=== PATIENT | female | born 1965 | race Caucasian/White ===

== ENCOUNTER 2018-05-20 07:03 | Day surgery (SDC) | payer OTHER ==
[~2018-05-20] VITALS: Ht 170.2 cm; Wt 61.2 kg
[2018-05-20] MEDS ORDERED: KETOROLAC 30 MG/ML VIAL ONE (08:50)
[2018-05-20] MEDS ORDERED: LIDOCAINE 2% 100 MG/5 ML UJET TP ONE (08:50)
== END 2018-05-20 10:12 | disposition home or self-care (01) ==
LOC: MDS 07:03 → MMU 07:08 → MDS 10:12
PROVIDERS: ATTEND Internal Medicine Gastroenterology
DX: Z09 Encounter for follow-up examination after completed treatment for conditions other than malignant neoplasm (principal); Z86.010 Personal history of colon polyps; Z15.09 Genetic susceptibility to other malignant neoplasm; M81.0 Age-related osteoporosis without current pathological fracture; Z98.890 Other specified postprocedural states; Z90.710 Acquired absence of both cervix and uterus; Z85.3 Personal history of malignant neoplasm of breast
CPT/HCPCS: 45378; J1885